=== PATIENT | female | born 1970 | race African-American/Black ===

== ENCOUNTER 2016-05-31 16:01 | Emergency (ER) | payer MEDICAID, MEDICARE ==
[~2016-05-31] VITALS: Ht 162.6 cm; Wt 50.0 kg
[2016-05-31 16:02] VITALS: BP 111/67; PULSE 80; RESP 16; TEMP 97.9; O2SAT 96
--- NOTE | 2016-05-31 16:12 | PD ---
HPI Chief Complaint: Cold / Flu Symptoms Time Seen by Provider: 16:12 Travel History International Travel<30 days: No Contact w/Intl Traveler<30days: No Traveled to known affect area: No History of Present Illness HPI 45 year old female with PMH of asthma, current smoker presents to the ED for evaluation of 3 week history of nonproductive cough. Patient also endorses accompanying clear rhinorrhea and occasional sneezing. She denies fever, chills , sinus congestion, sore throat, ear pain. She states that sometimes her coughing fits make her feel short of breath. Denies ARGUETA. Denies N/V, abdominal pain, changes in bowel habits, dysuria, back pain. She did not get this years flu shot. Takes no daily medications. NKDA. PFSH Past Medical History ?: Not LMP: 05/18/16 Social History Tobacco Use: Yes (2 PPD) Allergies-Medications (Allergen,Severity, Reaction): Coded Allergies: No Known Allergies (Unverified , 05/31/16) Reported Meds & Prescriptions Reported Meds & Active Scripts Active Cetirizine (Cetirizine HCl) 10 Mg Tab 10 Mg PO DAILY 30 Days Fluticasone Nasal [place] 50 Mcg/Act Naspr 100 Mcg EACH NARE DAILY 30 Days 50 mcg/spray Tessalon Perles (Benzonatate) 100 Mg Cap 100 Mg PO TID PRN Review of Systems Except as stated in HPI: all other systems reviewed are Neg Physical Exam Narrative GENERAL: Well-nourished, well-developed petite black female in no acute distress SKIN: Warm and dry. HEAD: Normocephalic. EYES: No scleral icterus. No injection or drainage. ENT: Pearly liu tympanic membranes bilaterally. Nasal mucosa moist, mildly erythematous. Oropharynx without erythema, edema or exudates. Uvula midline. No tenderness to palpation of the facial sinuses. NECK: Supple, trachea midline. No JVD or lymphadenopathy. CARDIOVASCULAR: Regular rate and rhythm without murmurs, gallops, or rubs. 2+ DP and radial pulses bilaterally. RESPIRATORY: Breath sounds clear and equal bilaterally. No accessory muscle use. GASTROINTESTINAL: Abdomen soft, non-tender, nondistended. Active bowel sounds. No suprapubic tenderness. MUSCULOSKELETAL: No cyanosis, or edema. Patient is observed to walk with a normal gait. BACK: Nontender without obvious deformity. No CVA tenderness. Data Data Last Documented VS Vital Signs Date Time Temp Pulse Resp B/P Pulse Ox O2 Delivery O2 Flow Rate FiO2 05/31/16 17:58 86 18 107/59 97 05/31/16 17:05 Room Air 05/31/16 16:02 97.9 Orders Electrocardiogram (05/31/16 ) Complete Blood Count With Diff (05/31/16 16:27) Comprehensive Metabolic Panel (05/31/16 16:27) Urinalysis - C+S If Indicated (05/31/16 16:27) Influenzae A/B Antigen (05/31/16 16:27) Iv Access Insert/Monitor (05/31/16 16:27) Ecg Monitoring (05/31/16 16:27) Oximetry (05/31/16 16:27) Oxygen Administration (05/31/16 16:27) Chest, Single Ap (05/31/16 16:27) Sodium Chloride 0.9% Flush (Ns Flush) (05/31/16 16:30) Labs Laboratory Tests Test 05/31/16 05/31/16 16:46 16:50 White Blood Count 6.8 TH/MM3 Red Blood Count 3.89 MIL/MM3 Hemoglobin 12.0 GM/DL Hematocrit 36.3 % Mean Corpuscular Volume 93.3 FL Mean Corpuscular Hemoglobin 30.7 PG Mean Corpuscular Hemoglobin 32.9 % Concent Red Cell Distribution Width 13.8 % Platelet Count 276 TH/MM3 Mean Platelet Volume 9.3 FL Neutrophils (%) (Auto) 44.5 % Lymphocytes (%) (Auto) 44.6 % Monocytes (%) (Auto) 8.0 % Eosinophils (%) (Auto) 1.5 % Basophils (%) (Auto) 1.4 % Neutrophils # (Auto) 3.0 TH/MM3 Lymphocytes # (Auto) 3.0 TH/MM3 Monocytes # (Auto) 0.5 TH/MM3 Eosinophils # (Auto) 0.1 TH/MM3 Basophils # (Auto) 0.1 TH/MM3 CBC Comment DIFF FINAL Differential Comment Sodium Level 144 MEQ/L Potassium Level 3.9 MEQ/L Chloride Level 109 MEQ/L Carbon Dioxide Level 30.2 MEQ/L Anion Gap 5 MEQ/L Blood Urea Nitrogen 10 MG/DL Creatinine 1.15 MG/DL Estimat Glomerular Filtration 62 ML/MIN Rate Random Glucose 90 MG/DL Calcium Level 8.4 MG/DL Total Bilirubin 0.1 MG/DL Aspartate Amino Transf 12 U/L (AST/SGOT) Alanine Aminotransferase 13 U/L (ALT/SGPT) Alkaline Phosphatase 43 U/L Total Protein 5.8 GM/DL Albumin 2.9 GM/DL Urine Color YELLOW Urine Turbidity CLEAR Urine pH 7.0 Urine Specific [place] 1.028 Urine Protein TRACE mg/dL Urine Glucose (UA) NEG mg/dL Urine Ketones NEG mg/dL Urine Occult Blood NEG Urine Nitrite NEG Urine Bilirubin NEG Urine Urobilinogen LESS THAN 2.0 MG/DL Urine Leukocyte Esterase NEG Urine RBC LESS THAN 1 /hpf Urine WBC 2 /hpf Urine Squamous Epithelial 2 /hpf Cells Urine Mucus FEW /lpf Microscopic Urinalysis Comment CULT NOT INDICATED MDM Medical Decision Making Medical Screen Exam Complete: Yes Emergency Medical Condition: Yes Differential Diagnosis Allergic rhinitis versus non-allergic rhinitis versus upper airway cough syndrome versus bronchitis versus pneumonia versus other Narrative Course 45 year old female with PMH of asthma, current smoker presents to the ED for evaluation of 3 week history of nonproductive cough, sneezing and clear rhinorrhea. She states that sometimes her coughing fits make her feel short of breath. Denies fevers, chills, sinus congestion, sore throat, ear pain.,N/V, abdominal pain, changes in bowel habits, dysuria, back pain. She did not get this years flu shot. Vitals reviewed. Physical exam is reassuring. Chest clear to auscultation bilaterally. Mild erythema of the nasal passages. CBC: WBC 6.8. Hemoglobin 12.0. CMP: Unremarkable. UA: No culture indicated Influenza swab: negative CXR: No active disease per radiology read. Discussed the results of the workup with the patient. We'll treat for upper airway cough syndrome. Patient prescribed Tessalon Perles, Flonase, cetirizine. She was counseled to stop smoking. She is instructed to take medication as prescribed, follow up with primary care, return for worsening symptoms. She indicated understanding of the instructions, is amenable to plan of care. She is stable and discharged home. Diagnosis Primary Impression: Upper airway cough syndrome Referrals: Primary Care Physician Patient Instructions: Allergic Rhinitis (ED), Chronic Cough (ED), General Instructions Additional Instructions: STOP SMOKING! Take all medications as prescribed. Follow-up with the primary care provider this week. Return to the ED for worsening of symptoms or any urgent or emergent medical condition. Med/Other Pt SpecificInfo: Prescription(s) given Scripts Cetirizine 10 Mg Tab10 Mg PO DAILY 30 Days Ref 0 Prov:Jada Holly MD 05/31/16 Fluticasone Nasal [place] 50 Mcg/Act [id number] Mcg EACH NARE DAILY 30 Days Ref 1 50 mcg/spray Prov:Jada Holly MD 05/31/16 Benzonatate (Tessalon Perles)100 Mg [id number] Mg PO TID PRN (COUGH) #15 CAP Ref 0 Prov:Jada Holly MD 05/31/16 Disposition: 01 DISCHARGE HOME Condition: Stable Meli López May 31, 2016 16:12
[2016-05-31] MEDS ORDERED: SODIUM CHLORIDE 0.9% FLUSH 5 ML FLUSH IVF PRN (16:30)
--- NOTE | 2016-05-31 16:59 | RADRPT ---
EXAM DATE/TIME: 05/31/2016 16:27 [facility] COMPARISON: No previous studies available for comparison. INDICATIONS : Cough, Short of Breath, Chest Pain from coughing. MEDICAL HISTORY : Asthma. SURGICAL HISTORY : None. ENCOUNTER: Initial ACUITY: 1 week PAIN SCORE: 2/10 LOCATION: Bilateral chest FINDINGS: A single view of the chest demonstrates the lungs to be symmetrically aerated without evidence of mas s, infiltrate or effusion. The cardiomediastinal contours are unremarkable. Osseous structures are intact except mild to moderate scoliosis. CONCLUSION: 1. No active disease. Mild to moderate thoracolumbar scoliosis. Mu Dean MD on May 31, 2016 at 16:58 Board Certified Radiologist. This report was verified electronically.
[2016-05-31 17:05] VITALS: O2SAT 96
[2016-05-31 17:19] LABS: BLOOD, URINE NEG (NEG); COMMENT (UR) CULT NOT INDICATED; CULTURE IF INDICATED CULT NOT INDICATED; GLUCOSE,URINE NEG (NEG); KETONE, URINE NEG (NEG); MUCUS URINE FEW /lpf (OCC); NITRITE,URINE NEG (NEG); SQUAMOUS EPITHELIAL CELL URINE 2 /hpf (0-5); URINE COLOR YELLOW (YELLW/STRAW)
[2016-05-31 17:20] LABS: BASOPHIL # 0.1 TH/MM3 (0-0.2); BASOPHIL % 1.4 % (0.0-2.0); EOSINOPHIL # 0.1 TH/MM3 (0-0.4); EOSINOPHIL % 1.5 % (0.0-4.0); HEMATOCRIT 36.3 % (35.0-46.0); HEMO FLAGS DIFF FINAL; LYMPH % 44.6 % (9.0-44.0); MEAN CELL VOLUME 93.3 FL (80.0-100.0); MEAN CORPUSCULAR HEMOGLOBIN 30.7 PG (27.0-34.0); MEAN CORPUSCULAR HGB CONC 32.9 % (32.0-36.0); NEUT % 44.5 % (16.0-70.0); PLATELET COUNT 276 TH/MM3 (150-450); RED BLOOD COUNT 3.89 MIL/MM3 (4.00-5.30); RED CELL DISTRIBUTION WIDTH 13.8 % (11.6-17.2); WHITE BLOOD COUNT 6.8 TH/MM3 (4.0-11.0)
[2016-05-31 17:31] LABS: ANION GAP 5 MEQ/L (5-15); AST (GOT) 12 U/L (15-37); BICARBONATE 30.2 MEQ/L (21.0-32.0); BLOOD UREA NITROGEN 10 MG/DL (7-18); CHLORIDE 109 MEQ/L (98-107); GLOMERULAR FILTRATION RATE 62 ML/MIN (>89); POTASSIUM 3.9 MEQ/L (3.5-5.1); SODIUM (NA) 144 MEQ/L (136-145)
[2016-05-31 17:34] LABS: ALKALINE PHOSPHATASE 43 U/L (45-117); ALT (GPT) 13 U/L (10-53); TOTAL BILIRUBIN ADULT 0.1 MG/DL (0.2-1.0)
[2016-05-31] MEDS ORDERED: FLUT50SP EACH NARE (17:40)
[2016-05-31] MEDS ORDERED: CETI10 PO (17:40)
[2016-05-31] MEDS ORDERED: BENZ100 PO (17:40)
[2016-05-31 17:58] VITALS: BP 107/59
--- NOTE | 2016-06-02 17:38 | EKG ---
Date Performed: 05/31/2016 Time Performed: 16:30:26 PTAGE: 45 years EKG: Sinus rhythm WITH SINUS ARRHYTHMIA NONSPECIFIC T-WAVE ABNORMALITY BORDERLINE ECG NO PREVIOUS TRACING DOCTOR: John Ventura Interpretating Date/Time 06/02/2016 17:35:56
== END 2016-05-31 17:59 | disposition home or self-care (01) ==
LOC: NEPA 16:01
DX: R05 Cough (principal); J45.909 Unspecified asthma, uncomplicated; F17.210 Nicotine dependence, cigarettes, uncomplicated; I49.8 Other specified cardiac arrhythmias
CPT/HCPCS: 71010; 80053; 81001; 85025; 87804; 93005